=== PATIENT | male | born 1945 | race Hispanic/Latino ===

== ENCOUNTER 2016-09-17 15:25 | Emergency (ER) | payer OTHER, MEDICARE ==
[~2016-09-17] VITALS: Ht 172.7 cm; Wt 82.6 kg
[~2016-09-17 15:25] MED LIST: AMITIZA24 MC1 PO; AMPICILLIN TRI500 MG PO; ASPIR 8181 MG PO; ATIVAN0.5 M1 PO; AUGMENTIN 875-1 EACH PO; BACTRIM DS TAB1 EACH PO; BACTROBAN OINT.30 GM TOP; BENTYL10 M1 PO; CIPRO 500MG TA500 MG PO; CIPRO500 M1 PO; CIPROFLOXACIN500 M2 PO; CITRATE OF MAG300 ML PO; CRESTOR10 M1 PO; CYCLOBENZAPRINE10 M1 PO; CYMBALTA 30 MG30 MG PO; CYMBALTA30 M1 PO; DRISDOL50000 UNIT PO; DRY MOUTH45 ML PO; FERROUS SULFAT325 M1 PO; FLEET ENEMA133 ML RC; FLOMAX(MONOGRA0.4 MG PO; FLONASE ALLERG9.9 ML NASB; GABAPENTIN300 M2; GAS RELIEF 8080 M1 PO; GLUCOPHAGE500 MG PO; GOLYTELY PACKE1 EACH PO; GOLYTELY SOLU4000 ML PO; IBUPROFEN600 M1 PO; JANUMET 1000 MG1 TAB PO; LACTULOSE10 GM/153 PO; LEVSIN0.125 M1 PO; LIDODERM1 EACH TOP; MACROBID 100 M100 MG PO; METFORMIN HCL500 M3 PO; METHADONE HCL10 M1 PO; MIDODRINE HCL10 M1 PO; MIRALAX119 GM PO; MIRALAX17 G1 PO; MOVANTIK25 M1 PO; NITROFURANTOIN100 M6 PO; PERCOCET 325 MG1 TA2 PO; PERCOCET 5-3251 EACH PO; PERCOCET 7.5-31 EACH PO; PHENAZOPYRIDIN200 M3 PO; PRILOSEC OTC20 M1 PO; PROPECIA 1MG1 MG PO; PROS5 PO; PYRIDIUM100 M1 PO; PYRIDIUM200 M1 PO; REMERON30 M1 PO; REMERON30 M3 PO; SENEXON-S 50 MG1 TAB PO; SENNA S TABLET1 EACH PO; SENNA8.6 M3 PO; TRAMADOL50 MG PO; TRAZODONE HCL50 M1 PO; VANCOMYCIN 11000 MG IV; VITAMIN B11000 MCG/M PO; VITAMIN B12 1541 TAB PO; VITAMIN B121000 MC2 PO
[2016-09-17 15:32] VITALS: BP 119/73
--- NOTE | 2016-09-17 15:38 | ED GI/GU/ABDOMINAL COMPLAINT ---
History of Present Illness General Chief Complaint: General Adult Stated Complaint: "I FEEL BLOATED" Source: patient, old records Exam Limitations: no limitations Vital Signs & Intake/Output Vital Signs & Intake/Output Vital Signs Date Time Temp Pulse Resp B/P B/P Pulse O2 O2 Flow FiO2 Mean Ox Delivery Rate 09/17 1603 Room Air 09/17 1532 97.7 81 20 119/73 96 Room Air Allergies Coded Allergies: NO KNOWN ALLERGIES (11/18/15) Reconcile Medications Aspirin (Ecotrin) 81 MG TABLET.DR 1 TAB PO DAILY HEART HEALTH (Reported) Cyanocobalamin (Vitamin B12) 1,000 MCG TAB 1 TAB PO DAILY VITAMIN SUPPORT Cyclobenzaprine HCl 10 MG TABLET 1 TAB PO QPM MUSCLE RELAXER (Reported) Duloxetine Hydrochloride (Cymbalta) 30 MG CAPSULE.DR 2 CAP PO DAILY MENTAL HEALTH (Reported) Ergocalciferol (Vitamin D2) (Drisdol) 50,000 UNIT CAPSULE 1 CAP PO QMON SUPPLEMENT (Reported) Ferrous Sulfate 325 MG TAB 325 MG PO DAILY IRON, VITAMIN Finasteride (Propecia) 5 MG TAB 5 MG PO QPM PROSTATE (Reported) Fluticasone Propionate (Flonase Allergy Relief) 9.9 ML SPRAY.SUSP 1 SPRAY NASB BID ALLERGIES (Reported) Gabapentin (Unknown Strength) CAPSULE (Unknown Dose) UNKNOWN (Reported) Hyoscyamine (Levsin) 0.125 MG TABLET 1 TAB PO Q4 ABDOMINAL SPASMS Ibuprofen (Unknown Strength) TABLET (Unknown Dose) PO AD PRN PAIN (Reported) Lactulose 10 GM/15 ML SOLUTION 30 ML PO QAM PRN CONSTIPATION Lorazepam (Ativan) 0.5 MG TABLET 1 TAB PO DAILY PRN ANXIETY (Reported) Lubiprostone (Amitiza) 24 MCG CAPSULE 1 CAP PO BID GI (Reported) Metformin HCl 500 MG TABLET 1 TAB PO BID DIABETES (Reported) Naloxegol Oxalate (Movantik) 25 MG TABLET 25 MG PO DAILY CONSTIPATION ( Reported) Nitrofurantoin Monohyd/M-Cryst (Macrobid 100 MG Capsule) 100 MG CAPSULE 1 CAP PO BID uti with food Omeprazole Magnesium (Prilosec Otc) 20 MG TABLET.DR 1 TAB PO DAILY stomach upset Oxycodone HCl/Acetaminophen (Percocet 5-325 MG Tablet) 1 EACH TABLET 2 TAB PO Q4HRS PRN PAIN (Reported) Peg 3350/Na Sulf,Bicarb,Cl/KCl (Golytely Packet) 227.1-21.5 POWD.PACK 8 OZ PO T24OXAPLNM PRN CONSTIPATION Phenazopyridine HCl 200 MG TABLET 1 TAB PO Q6H PRN URINARY PAIN (Reported) Polyethylene Glycol 3350 (Miralax) 17 GM POWD.PACK 1 PAC PO DAILY GI ( Reported) dissolve in water Rosuvastatin Calcium (Crestor) 10 MG TABLET 1 TAB PO DAILY CHOLESTEROL ( Reported) Saliva Stimulant Agents Comb.4 (Dry Mouth) (Unknown Strength) SPRAY (Unknown Dose) PO Q4H PRN DRY MOUTH (Reported) Sennosides (Senna) 8.6 MG TABLET 2 TAB PO BID constipation Simethicone (Gas Relief 80) 80 MG TAB.CHEW 1 TAB PO Q4HPRN PRN gas Tamsulosin Hydrochloride (Flomax) 0.4 MG CAP.ER.24H 1 CAP PO QPM PROSTATE ( Reported) Trazodone HCl 50 MG TABLET 1 TAB PO QHS PRN INSOMNIA (Reported) Triage Note: PT TO ED C/O "I FEEL BLOATED" X 2 WEEKS. VISITING NURSE WAS AT PT'S HOUSE AND ADVISED PT TO COME TO ED. Triage Nurses Notes Reviewed? yes Onset: Gradual Duration: week(s): (2), constant Timing: recent history Quality/Severity: aching, cramping Severity Numbers: 5 Location: generalized abdomen Radiation: no radiation Activities at Onset: none Prior Abdominal Problems: similar symptoms No Modifying Factors: none Associated Symptoms: CONSTIPATION HPI: 70-year-old male with history of diabetes hypertension and high cholesterol presents to ER complaining of generalized abdominal bloating or constipation. He states his abdomen is bloated for the past 2 weeks however he states that he has not had a bowel movement in the past 4 days. He denies any black or bloody stools no nausea no vomiting. The patient has been seen here before for similar symptoms. He states is been using MiraLAX without improvement. No modifying factors no fevers or chills. (CARY POWELL) Past History Travel History Traveled to [place] past 21 day No Medical History Any Pertinent Medical History? see below for history Neurological: partial paraplegia EENT: NONE Cardiovascular: hypertension, hyperlipidemia Respiratory: NONE Gastrointestinal: GERD, ?HX BOWEL OBSTRUCTION Hepatic: NONE Renal: suprapubic catheter ENLARGED PROSTATE Musculoskeletal: ARTHRITIS SPINAL FX/SX Psychiatric: chronic pain disorder, depression Endocrine: diabetes Blood Disorders: NONE Cancer(s): NONE MOTORCYCLE POLICE/Reproductive: NONE History of MRSA: Yes History of VRE: No History of CDIFF: No Surgical History Surgical History: spinal surgery, suprapubic catheter Psychosocial History Who do you live with Patient and family Services at Home Nursing What is your primary language Swedish Tobacco Use: Never used ETOH Use: denies use Illicit Drug Use: denies illicit drug use Family History Family History, If Any: Relation not specified for: FH: diabetes mellitus Hx Contributory? No (CARY POWELL) Review of Systems Review of Systems Constitutional: Reports: see HPI. All Other Systems: Reviewed and Negative Comments Review of systems: See HPI, All other systems negative. Constitutional, no chills no fever, no malaise HEENT: No visual changes no sore throat no congestion Cardiovascular: No chest pain , no palpitation Skin: no rashes, no change in skin Respiratory: No dyspnea no cough no sputum GI: No nausea no vomiting, no diarrhea, : No dysuria Muscle skeletal: No joint pain, no back pain, no neck pain, Neurologic: No numbness no headache Psych: No stress Heme/endocrine: No bruising Immunology: No lymphadenopathy (CARY POWELL) Physical Exam Physical Exam General Appearance: well developed/nourished, no apparent distress, alert, awake Gastrointestinal: soft Comments: Well-developed well-nourished person in no acute distress HEENT: Normal EENT exam; PERRL, EOMI,HEAD is atraumatic. moist mucous membranes. Neck: Supple, normal range of motion Back: Nontender,Full range of motion Cardiovascular: Regular rate and rhythms no murmurs rubs Respiratory: Chest nontender.There were no bony deformities, no asymmetry. No respiratory distress. Patient speaking in full complete sentences. Breath sounds clear to auscultation bilaterally: NO W/R/R Abdomen: Soft, nontenderdistended, no appreciable organomegaly. Normal bowel sounds. No rebound/guarding, No appreciable enlargement of the abdominal aorta, No ascites. Extremity: No edema, full range of motion of extremities, Neuro: Alert oriented x3, motor sensory normal, There were no obvious focal neurologic abnormalities. Skin: No appreciable rash on exposed skin, skin is warm and dry. Psych: Mood and affect is normal, memory and judgment is normal. Core Measures ACS in differential dx? Yes Severe Sepsis Present: No Septic Shock Present: No (JOHNNIE RUSH,CARY) Progress Differential Diagnosis: bowel obstruction, colon cancer, diverticulitis, ischemic bowel, inflamm bowel dis, perforated viscous, pyelonephritis, SBO, CONSTIPATION, OBSTRUCTION, MALIGNANCY Plan of Care: Orders Procedure Date/time Status Enema 09/17 1628 Active COMPREHENSIVE METABOLIC PANEL 09/17 1554 Complete TROPONIN LEVEL 09/17 153 Complete LACTIC ACID 09/17 153 Complete CBC WITHOUT DIFFERENTIAL 09/17 1535 Complete Laboratory Tests 09/17/16 1554: Anion Gap 12, Estimated GFR > 60, BUN/Creatinine Ratio 16.0, Glucose 158 H, Lactic Acid 1.7, Calcium 9.5, Total Bilirubin 0.8, AST 21, ALT 40, Alkaline Phosphatase 61, Troponin I < 0.01, Total Protein 7.2, Albumin 4.2, Globulin 3.0, Albumin/Globulin Ratio 1.4, CBC w Diff NO MAN DIFF REQ, RBC 4.44 L, MCV 94.1 H , MCH 31.5 H, RDW 12.5, MPV 8.0, Gran % 78.2 H, Lymphocytes % 10.6 L, Monocytes % 8.4, Eosinophils % 2.5, Basophils % 0.3, Absolute Granulocytes 7.7 H, Absolute Lymphocytes 1.0 L, Absolute Monocytes 0.8 H, Absolute Eosinophils 0.2, Absolute Basophils 0, PUBS MCHC 33.5 09/17/16 1535: Sodium Cancelled, Potassium Cancelled, Chloride Cancelled, Carbon Dioxide Cancelled, Anion Gap Cancelled, BUN Cancelled, Creatinine Cancelled, BUN/ Creatinine Ratio Cancelled, Glucose Cancelled, Calcium Cancelled, Total Bilirubin Cancelled, AST Cancelled, ALT Cancelled, Alkaline Phosphatase Cancelled, Total Protein Cancelled, Albumin Cancelled, Globulin Cancelled, Albumin/Globulin Ratio Cancelled Labs ordered old records reviewed x-ray ordered case discussed with Dr. Underwood agrees with plan Discussed with the patient all of his lab results x-ray findings we will attempt a fleet enema as this has helped with his sx in the past pt ambulatoryto bathroom by self Patient feeling improved after fleets, I discussed with the patient at length all of their results. I had an extensive conversation regarding need for close follow up with their primary care physician this week as well as return precautions. I answered all of their questions, they feel comfortable with the plan and follow-up care. I discussed the medications that they will receive with the patient. I gave them signs and symptoms that could indicate an adverse reaction. I have advised them to limit their activities until they can see how they respond to the medication. (CARY POWELL) Diagnostic Imaging: Viewed by Me: Radiology Read. Discussed w/RAD: Radiology Read. Radiology Impression: PATIENT: JOSHUA HENDERSON PRESENT AGE : 70 PATIENT ACCOUNT NO: [id number] : 45 LOCATION: [facility] ORDERING PHYSICIAN: CARY RUSH SERVICE DATE: 09/17/16 EXAM TYPE: RAD - XRY- ABDOMEN-MULTIPLE VIEWS EXAMINATION: ABDOMEN 2 VIEWS CLINICAL INFORMATION: Bloating, constipation. COMPARISON: 04/05/2016. TECHNIQUE: Supine and upright views of the abdomen are provided. FINDINGS: There is a moderate amount of stool throughout the colon. There are no dilated loops of small bowel. There are no air-fluid levels. There is no appendicolith. The visualized lung bases are clear. The osseous structures are unremarkable. IMPRESSION: Moderate amount of stool throughout the colon. No evidence for obstruction. DICTATED BY: MAIKOL GABRIEL MD DATE/TIME DICTATED:09/17/161621 ACTUARY MANAGER:ANYI DATE/TIME TRANSCRIBED:09/17/161621 CONFIDENTIAL, DO NOT COPY WITHOUT APPROPRIATE AUTHORIZATION. <Electronically signed in Other Vendor System> SIGNED BY: MAIKOL GABRIEL MD 09/17/161626 Initial ED EKG: none (CARY POWELL) Departure Departure Time of Disposition: 1705 Disposition: HOME OR SELF CARE Condition: Stable Clinical Impression Primary Impression: Constipation Referrals: LYNN PALOMINO (PCP/Family) Additional Instructions: follow up with your pmd this week. golyltely as directed. return to the ER with any concerns Departure Forms: Customer Survey General Discharge Information Prescriptions: Current Visit Scripts Peg 3350/Na Sulf,Bicarb,Cl/KCl (Golytely Packet) 8 OZ PO [id number] PRN CONSTIPATION #4 L (CARY POWELL) PA/RAYON TESTER Co-Sign Statement Statement: ED Attending supervision documentation- [X] I saw and evaluated the patient. I have also reviewed all the pertinent lab results and diagnostic results. I agree with the findings and the plan of care as documented in the PA's/RAYON TESTER's documentation. [X] I have reviewed the ED Record and agree with the PA's/RAYON TESTER's documentation. [] Additions or exceptions (if any) to the PAs/RAYON TESTER's note and plan are summarized below: [] (HITESH YEN,LUPE)
[2016-09-17 16:13] LABS: ABSOLUTE BASOPHIL COUNT 0 /CUMM (0.0-0.2); ABSOLUTE EOSINOPHIL COUNT 0.2 /CUMM (0.0-0.7); ABSOLUTE GRANULOCYTE CT 7.7 /CUMM (1.4-6.5); ABSOLUTE MONOCYTE COUNT 0.8 /CUMM (0.10-0.60); BASOPHIL % 0.3 % (0.0-2.0); EOSINOPHIL % 2.5 % (0-5); GRANULOCYTE % 78.2 % (42.2-75.2); HEMATOCRIT 41.8 % (42-52); MEAN CORPUSCULAR HGB 31.5 PG (27.0-31.0); MEAN CORPUSCULAR HGB CONC 33.5 G/DL (33.0-37.0); MEAN CORPUSCULAR VOLUME 94.1 FL (80.0-94.0); PLATELET COUNT 226 /CUMM (130-400); RBC DISTRIBUTION WIDTH 12.5 % (11.5-14.5); RED BLOOD CELL CT 4.44 /CUMM (4.70-6.10); WHITE BLOOD CELL COUNT 9.8 /CUMM (4.8-10.8)
--- NOTE | 2016-09-17 16:27 | RADIOLOGY REPORT ---
EXAMINATION: ABDOMEN 2 VIEWS CLINICAL INFORMATION: Bloating, constipation. COMPARISON: 04/05/2016. TECHNIQUE: Supine and upright views of the abdomen are provided. FINDINGS: There is a moderate amount of stool throughout the colon. There are no dilated loops of small bowel. There are no air-fluid levels. There is no appendicolith. The visualized lung bases are clear. The osseous structures are unremarkable. IMPRESSION: Moderate amount of stool throughout the colon. No evidence for obstruction.
[2016-09-17] MEDS ORDERED: GOLYTELY PACKE1 EACH PO (17:06)
== END 2016-09-17 17:25 ==
LOC: ERH 15:25
PROVIDERS: Physician Assistant Medical
DX: K59.00 Constipation, unspecified (principal)
CPT/HCPCS: 74020

== ENCOUNTER 2016-11-04 16:01 | Emergency (ER) | payer OTHER, MEDICARE ==
[~2016-11-04] VITALS: Ht 172.7 cm; Wt 83.5 kg
[~2016-11-04 16:01] MED LIST changes: -ASPIR 8181 MG PO; +ASPIRIN EC81 M1 PO; -DRISDOL50000 UNIT PO; +FINASTERIDE5 M1 PO; +FLOMAX0.4 M1 PO; -PROS5 PO; +VITAMIN D250000 UNIT PO
--- NOTE | 2016-11-04 17:15 | ULTRASOUND REPORT ---
EXAMINATION: US TRIPLEX LOWER EXTREMITY, RIGHT CLINICAL INFORMATION: Right lower extremity edema and swelling. COMPARISON: None. TECHNIQUE: Color-flow triplex imaging with spectral analysis and compression Doppler were performed on the lower extremity. FINDINGS: Respiratory variation, normal compression and augmented flow are noted throughout the left lower extremity. The visualized common femoral vein, femoral vein, profunda femoral vein, popliteal vein and midcalf peroneal and posterior tibial venous segments show no evidence of deep venous thrombosis. There is no Weiss's cyst. IMPRESSION: Normal triplex scan without evidence of deep venous thrombosis involving the right lower extremity.
--- NOTE | 2016-11-04 18:34 | ED GENERAL ADULT ---
History of Present Illness General Chief Complaint: General Adult Stated Complaint: SENT BY MD TO R/O DVT,ABD DISTENTION Source: patient, family Exam Limitations: no limitations Allergies Coded Allergies: NO KNOWN ALLERGIES (11/18/15) Reconcile Medications Aspirin (Ecotrin*) 81 MG TABLET.DR 1 TAB PO DAILY HEART/BLOOD (Reported) Duloxetine Hydrochloride (Cymbalta) 30 MG CAPSULE.DR 2 CAP PO DAILY MENTAL HEALTH (Reported) Ergocalciferol (Vitamin D2) (Vitamin D2) 50,000 UNIT CAPSULE 1 CAP PO QMON SUPPLEMENT (Reported) Finasteride 5 MG TABLET 1 TAB PO QPM PROSTATE (Reported) Hyoscyamine (Levsin) 0.125 MG TABLET 1 TAB PO Q4 ABDOMINAL SPASMS Ibuprofen 800 MG TABLET 1 TAB PO PRN PAIN (Reported) Lactulose 10 GM/15 ML SOLUTION 30 ML PO QAM PRN CONSTIPATION Metformin HCl 500 MG TABLET 1 TAB PO BID DIABETES (Reported) Rosuvastatin Calcium (Crestor) 10 MG TABLET 1 TAB PO DAILY CHOLESTEROL ( Reported) Simethicone (Gas Relief 80) 80 MG TAB.CHEW 1 TAB PO Q4HPRN PRN gas Tamsulosin HCl (Flomax) 0.4 MG CAP.ER.24H 1 CAP PO QPM PROSTATE (Reported) Triage Note: 71 YO MALE TO ER FOR R/O DVT TO RLE AND FOR ABD BLOATING, C/O PAIBN TO LOWER ABD. STATES LAST BOWEL MOVMENT WAS THURSDAY. DENIES NAUSEA/VOMTINIG, C/O "ALOT OF GAS" Triage Nurses Notes Reviewed? yes Onset: Abrupt Duration: day(s):, constant, continues in ED Timing: recent history Injury Environment: home Severity: moderate, severe No Modifying Factors: none HPI: 71-year-old male comes into emergency room for further evaluation of right leg swelling, and lower abdominal pain, and leg shaking. Patient reports that he's been unsteady on his feet. He has some lower abdominal pain with some associated diarrhea for the past week. Denies any chest pain or shortness of breath. Pain wraps around to his lower back. Nothing seems to make the symptoms better or worse. (HEATHER RUSH,ASHLEY) Vital Signs & Intake/Output Vital Signs & Intake/Output Vital Signs Date Time Temp Pulse Resp B/P B/P Pulse O2 O2 Flow FiO2 Mean Ox Delivery Rate 11/04 2112 72 20 112/67 97 11/04 1829 75 107/56 97 Room Air 11/04 1606 98.6 88 18 114/75 98 Room Air Past History Travel History Traveled to [place] past 21 day No Medical History Any Pertinent Medical History? see below for history Neurological: partial paraplegia EENT: NONE Cardiovascular: hypertension, hyperlipidemia Respiratory: NONE Gastrointestinal: GERD, ?HX BOWEL OBSTRUCTION Hepatic: NONE Renal: suprapubic catheter ENLARGED PROSTATE Musculoskeletal: ARTHRITIS SPINAL FX/SX Psychiatric: chronic pain disorder, depression Endocrine: diabetes Blood Disorders: NONE Cancer(s): NONE PHYSICAL INSTRUCTOR/Reproductive: NONE History of MRSA: Yes History of VRE: No History of CDIFF: No Surgical History Surgical History: spinal surgery, suprapubic catheter Psychosocial History Who do you live with Patient and family 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 No (ASHLEY THAO) Review of Systems Review of Systems Constitutional: Reports: no symptoms. EENTM: Reports: no symptoms. Respiratory: Reports: no symptoms. Cardiovascular: Reports: no symptoms. GI: Reports: see HPI. Genitourinary: Reports: see HPI. Musculoskeletal: Reports: see HPI. Skin: Reports: no symptoms. Neurological/Psychological: Reports: no symptoms. Hematologic/Endocrine: Reports: no symptoms. Immunologic/Allergic: Reports: no symptoms. All Other Systems: Reviewed and Negative (ASHLEY THAO) Physical Exam Physical Exam General Appearance: alert, awake Head: atraumatic Eyes: Bilateral: normal appearance. Ears, Nose, Throat: normal ENT inspection, hearing grossly normal Neck: normal inspection Respiratory: normal breath sounds, no respiratory distress Cardiovascular: regular rate/rhythm Gastrointestinal: soft, tenderness Back: normal range of motion Extremities: edema, no erythema, no open sores Neurologic/Psych: awake, alert, oriented x 3, normal mood/affect Skin: intact, normal color Core Measures ACS in differential dx? No CVA/TIA Diagnosis: No Severe Sepsis Present: No Septic Shock Present: No (ASHLEY THAO) Progress Differential Diagnoses I considered the following diagnoses in my evaluation of the patient: DVT, diverticulitis, constipation, low back strain, cauda equina, UTI, Plan of Care: Orders Procedure Date/time Status CULTURE,URINE 11/04 1832 Active URINALYSIS 11/04 1832 Complete TROPONIN LEVEL 11/04 1832 Complete LACTIC ACID 11/04 1832 Complete COMPREHENSIVE METABOLIC PANEL 11/04 1832 Complete CBC WITHOUT DIFFERENTIAL 11/04 1832 Complete EKG 11/04 1832 Active Laboratory Tests 11/04/161912: Anion Gap 12, Estimated GFR > 60, BUN/Creatinine Ratio 15.5, Glucose 121 H, Lactic Acid 1.8, Calcium 10.2, Total Bilirubin 0.5, AST 19, ALT 26, Alkaline Phosphatase 61, Troponin I < 0.01, Total Protein 7.3, Albumin 4.3, Globulin 3.0, Albumin/Globulin Ratio 1.4, CBC w Diff NO MAN DIFF REQ, RBC 4.40 L, MCV 94.0, MCH 31.5 H, RDW 12.5, MPV 7.7, Gran % 70.3, Lymphocytes % 16.6 L, Monocytes % 9.8 H, Eosinophils % 2.9, Basophils % 0.4, Absolute Granulocytes 5.0, Absolute Lymphocytes 1.2, Absolute Monocytes 0.7 H, Absolute Eosinophils 0.2, Absolute Basophils 0, PUBS MCHC 33.5, Urinalysis LIGHT H, Urine Color YEL, Urine Clarity HAZY H, Urine pH 6.5, Ur Specific [place] <= 1.005, Urine Protein NEG, Urine Ketones NEG, Urine Nitrite POS H, Urine Bilirubin NEG, Urine Urobilinogen 0.2, Ur Leukocyte Esterase LARGE H, Ur Microscopic SEDIMENT EXAMINED, Urine WBC 25- 50 H, Ur Epithelial Cells FEW, Urine Bacteria MOD H, Urine Hemoglobin TRACE- LYSED H, Urine Glucose NEG Microbiology 11/04 1912 URINE ROUT: Urine Culture - RECD Diagnostic Imaging: Viewed by Me: CT Scan. Discussed w/RAD: CT Scan. Radiology Impression: XAM TYPE: CAT - CT ABD & PELVIS W/O IV CONTRAS EXAMINATION : CT ABDOMEN AND PELVIS WITHOUT CONTRAST CLINICAL INFORMATION: Lower back and abdominal pain. COMPARISON: 02/15/2016 TECHNIQUE: Multidetector volumetric imaging was performed from the superior aspect of the liver through the pubic symphysis. Sagittal and coronal reformatted images were obtained on the technologist's workstation. DLP: 403 mGy-cm FINDINGS: LUNG BASES: Unremarkable. LIVER AND SPLEEN: Unremarkable. PANCREAS GALLBLADDER AND BILIARY TREE: Pancreas appears somewhat atrophic. There is a subcentimeter hyperdensity identified dependently in the gallbladder suggesting at least one small calculus, otherwise the gallbladder is somewhat contracted limiting evaluation. Biliary tree is nondilated. KIDNEYS, URETERS, AND ADRENALS: Unremarkable on this noncontrast examination. There is no evidence of hydronephrosis or urolithiasis. The adrenal glands appear unremarkable. URINARY BLADDER: There is a suprapubic catheter in place, urinary bladder is collapsed limiting evaluation. Prostate is moderately- to-markedly enlarged. GI TRACT: There is a redundant air-filled sigmoid colon extending superiorly to above the level of the transverse colon and then extending inferiorly back into the pelvis. The remaining colon is moderately stool-filled. Stomach and small bowel loops appear unremarkable. PERITONEAL CAVITY: There is no intraperitoneal free air or free fluid identified. RETROPERITONEUM: Mild atherosclerotic aortic calcification without aneurysmal dilatation. PELVIC ORGANS: Prostate is moderately enlarged, urinary bladder contains a suprapubic tube and is collapsed. OSSEOUS STRUCTURES: No focal destructive or sclerotic osseous lesions are identified to suggest an aggressive process. There are moderate facet degenerative changes involving the lower lumbar spine and lumbosacral junction with hypertrophic productive change resulting in bilateral foraminal narrowing at the L5-S1 greater than L4-L5 levels. There is joint space narrowing in the hips with mild productive changes on the right. ANTERIOR ABDOMINAL WALL AND SOFT TISSUES: There is a small indirect left inguinal hernia containing only mesenteric fat. IMPRESSION: 1. Cholelithiasis without evidence of acute cholecystitis. 2. Sigmoid colon is redundant with moderate gaseous distention largely unchanged compared with plain films dated 09/17/2016. There is no evidence of an obstruction. 3. Prostate is enlarged. There is a suprapubic tube again identified in place. 4. Moderate spondylosis most notably L4-L5 and L5-S1 levels. 5. Left inguinal hernia containing only mesenteric fat. DICTATED BY: RIKKI MOORE MD DATE/TIME DICTATED:11/04/161845 FILM TOUCH UP INSPECTOR:ANYI DATE/TIME TRANSCRIBED:1845 CONFIDENTIAL, DO NOT COPY WITHOUT APPROPRIATE AUTHORIZATION. < Electronically signed in Other Vendor System> Initial ED EKG: normal intervals, normal p-waves, normal QRS complex, normal sinus rhythm, rate (68) (ASHLEY THAO) Departure Departure Disposition: HOME OR SELF CARE Condition: Stable Clinical Impression Primary Impression: Abdominal pain Referrals: LYNN PALOMINO (PCP/Family) Additional Instructions: Follow-up with your primary care doctor. Follow-up for outpatient stool sample with primary care doctor. Bring stool samples here primary care doctor. Return if any concerns worsening symptoms. Please go over all results of today's visit with your primary care doctor. Contact your primary care doctor to let them know you were here in the emergency room. There may be nonspecific findings which may not be related to your visit today here in the emergency room but may require further evaluation and chronic monitoring by your primary care doctor. If you had a laceration today the chance of foreign body always remains. You should follow-up with your primary care doctor for recheck in 3-5 days for a wound check. If you had an x-ray done there is a chance that a fracture could have been missed on initial read and you should follow-up with your primary care doctor for repeat x-rays if symptoms persist. If your blood pressure was elevated here in the emergency room please have rechecked by her primary care doctor within the next 48 hours by your primary care doctor. If you were prescribed a narcotic here in the emergency room or any type of controlled substances you're not allowed to drive while taking this medication or operate any type of heavy machinery. Narcotics can make you feel lightheaded dizziness nausea and can cause constipation. You may need to continuous pickling line pickler a stool softener. Thank you for choosing [facility] emergency room. Please return to the emergency room immediately if you have any other concerns worsening of symptoms. Departure Forms: Customer Survey General Discharge Information Comments 11/04/2016 9:23:59 PM Patient clinically looks well. Patient is in no apparent distress. Patient is nontoxic-appearing. Patient is resting comfortably in room. He is able to ambulate here with a walker at his normal baseline. Patient was seen and evaluated by Dr. Burns. No evidence of DVT. No evidence of lower extremity infection. Patient is at his normal baseline of function. Follow-up with primary care. Return for other concerns. Reviewing previous urines patient is positive nitrate and always has pyuria. I do not feel the patient has a urinary tract infection but is chronically colonized. Urine culture sent. Afebrile. No white count. (ASHLEY THAO) PA/GROUP INSURANCE SPECIAL AGENT Co-Sign Statement Statement: ED Attending supervision documentation- [X I saw and evaluated the patient. I have also reviewed all the pertinent lab results and diagnostic results. I agree with the findings and the plan of care as documented in the PA's/GROUP INSURANCE SPECIAL AGENT's documentation. [] I have reviewed the ED Record and agree with the PA's/GROUP INSURANCE SPECIAL AGENT's documentation. [] Additions or exceptions (if any) to the PAs/GROUP INSURANCE SPECIAL AGENT's note and plan are summarized below: [] (FREDERICK YEN,WENDIE Waters) Critical Care Note Critical Care Note Critical Care Time: non-applicable (ASHLEY THAO)
[2016-11-04] MEDS ORDERED: IBUPROFEN800 M1 PO (18:43)
--- NOTE | 2016-11-04 19:11 | CT SCAN REPORT ---
EXAMINATION: CT ABDOMEN AND PELVIS WITHOUT CONTRAST CLINICAL INFORMATION: Lower back and abdominal pain. COMPARISON: 02/15/2016 TECHNIQUE: Multidetector volumetric imaging was performed from the superior aspect of the liver through the pubic symphysis. Sagittal and coronal reformatted images were obtained on the technologist's workstation. DLP: 403 mGy-cm FINDINGS: LUNG BASES: Unremarkable. LIVER AND SPLEEN: Unremarkable. PANCREAS GALLBLADDER AND BILIARY TREE: Pancreas appears somewhat atrophic. There is a subcentimeter hyperdensity identified dependently in the gallbladder suggesting at least one small calculus, otherwise the gallbladder is somewhat contracted limiting evaluation. Biliary tree is nondilated. KIDNEYS, URETERS, AND ADRENALS: Unremarkable on this noncontrast examination. There is no evidence of hydronephrosis or urolithiasis. The adrenal glands appear unremarkable. URINARY BLADDER: There is a suprapubic catheter in place, urinary bladder is collapsed limiting evaluation. Prostate is [id number] enlarged. GI TRACT: There is a redundant air-filled sigmoid colon extending superiorly to above the level of the transverse colon and then extending inferiorly back into the pelvis. The remaining colon is moderately stool-filled. Stomach and small bowel loops appear unremarkable. PERITONEAL CAVITY: There is no intraperitoneal free air or free fluid identified. RETROPERITONEUM: Mild atherosclerotic aortic calcification without aneurysmal dilatation. PELVIC ORGANS: Prostate is moderately enlarged, urinary bladder contains a suprapubic tube and is collapsed. OSSEOUS STRUCTURES: No focal destructive or sclerotic osseous lesions are identified to suggest an aggressive process. There are moderate facet degenerative changes involving the lower lumbar spine and lumbosacral junction with hypertrophic productive change resulting in bilateral foraminal narrowing at the L5-S1 greater than L4-L5 levels. There is joint space narrowing in the hips with mild productive changes on the right. ANTERIOR ABDOMINAL WALL AND SOFT TISSUES: There is a small indirect left inguinal hernia containing only mesenteric fat. IMPRESSION: 1. Cholelithiasis without evidence of acute cholecystitis. 2. Sigmoid colon is redundant with moderate gaseous distention largely unchanged compared with plain films dated 09/17/2016. There is no evidence of an obstruction. 3. Prostate is enlarged. There is a suprapubic tube again identified in place. 4. Moderate spondylosis most notably L4-L5 and L5-S1 levels. 5. Left inguinal hernia containing only mesenteric fat.
[2016-11-04 19:31] LABS: ABSOLUTE BASOPHIL COUNT 0 /CUMM (0.0-0.2); ABSOLUTE EOSINOPHIL COUNT 0.2 /CUMM (0.0-0.7); ABSOLUTE LYMPH COUNT 1.2 /CUMM (1.2-3.4); ABSOLUTE MONOCYTE COUNT 0.7 /CUMM (0.10-0.60); BASOPHIL % 0.4 % (0.0-2.0); EOSINOPHIL % 2.9 % (0-5); GRANULOCYTE % 70.3 % (42.2-75.2); HEMATOCRIT 41.3 % (42-52); MEAN CORPUSCULAR HGB 31.5 PG (27.0-31.0); MEAN CORPUSCULAR HGB CONC 33.5 G/DL (33.0-37.0); MEAN PLATELET VOLUME 7.7 FL (7.4-10.4); PLATELET COUNT 245 /CUMM (130-400); RBC DISTRIBUTION WIDTH 12.5 % (11.5-14.5); WHITE BLOOD CELL COUNT 7.1 /CUMM (4.8-10.8)
[2016-11-04 21:12] VITALS: BP 112/67
== END 2016-11-04 21:14 ==
LOC: ERH 16:01
PROVIDERS: Physician Assistant Medical
DX: R10.31 Right lower quadrant pain (principal)
CPT/HCPCS: 87184; 74176; 81001; 87086; 87147; 93005; 93010

== ENCOUNTER 2017-06-09 14:30 | Emergency (ER) | payer OTHER, MEDICARE ==
[~2017-06-09] VITALS: Ht 172.7 cm; Wt 65.8 kg
[~2017-06-09 14:30] MED LIST changes: +COLACE100 M1 PO; +IBUPROFEN800 M1 PO
--- NOTE | 2017-06-09 17:20 | ED GI/GU/ABDOMINAL COMPLAINT ---
History of Present Illness General Chief Complaint: Abdominal Pain/Flank Pain Stated Complaint: L SIDE ABD PAIN Source: patient, old records Exam Limitations: no limitations Vital Signs & Intake/Output Vital Signs & Intake/Output Vital Signs Date Time Temp Pulse Resp B/P B/P Pulse O2 O2 Flow FiO2 Mean Ox Delivery Rate 06/09 1731 100 06/09 1722 98.2 67 2 140/65 100 Room Air 06/09 1446 97.0 73 20 138/73 98 Room Air Allergies Coded Allergies: NO KNOWN ALLERGIES (11/18/15) Reconcile Medications Aspirin (Ecotrin*) 81 MG TABLET.DR 1 TAB PO DAILY HEART/BLOOD (Reported) Dicyclomine Hydrochloride (Bentyl) 10 MG CAPSULE 1 CAP PO TID PRN ABDOMINAL PAIN Docusate Sodium (Colace) 100 MG CAPSULE 1 CAP PO ONCE PRN CONSTIPATION Duloxetine Hydrochloride (Cymbalta) 30 MG CAPSULE.DR 2 CAP PO DAILY MENTAL HEALTH (Reported) Ergocalciferol (Vitamin D2) (Vitamin D2) 50,000 UNIT CAPSULE 1 CAP PO QMON SUPPLEMENT (Reported) Finasteride 5 MG TABLET 1 TAB PO QPM PROSTATE (Reported) Hyoscyamine (Levsin) 0.125 MG TABLET 1 TAB PO Q4 ABDOMINAL SPASMS Ibuprofen 800 MG TABLET 1 TAB PO PRN PAIN (Reported) Lactulose 10 GM/15 ML SOLUTION 30 ML PO QAM PRN CONSTIPATION Metformin HCl 500 MG TABLET 1 TAB PO BID DIABETES (Reported) Rosuvastatin Calcium (Crestor) 10 MG TABLET 1 TAB PO DAILY CHOLESTEROL ( Reported) Sennosides (Senna) 8.6 MG TABLET 2 TAB PO ONCE PRN CONSTIPATION Simethicone (Gas Relief 80) 80 MG TAB.CHEW 1 TAB PO Q4HPRN PRN gas Tamsulosin HCl (Flomax) 0.4 MG CAP.ER.24H 1 CAP PO QPM PROSTATE (Reported) Triage Note: PT TO ED C/O LLQ PAIN. PT STATES HE WAS "BACKED UP" SO HE DRANK "A LIQUID" LAST NIGHT. HAD DIARRHEA AND NOW C/O LLQ PAIN. Triage Nurses Notes Reviewed? yes Onset: Gradual Duration: getting worse Timing: recent history Quality/Severity: sharpness, severe, stabbing Severity Numbers: 6 Location: left lower quadrant, left upper quadrant Radiation: no radiation HPI: Patient is a 71-year-old male with a past medical history of chronic abdominal pain and constipation with several emergency room visits for symptoms, hypertension, diabetes, hyperlipidemia BPH with outflow obstruction in urinary retention status post suprapubic catheter, neurogenic bladder, erosive hypospadias, kidney stones and depression who presents emergency room with concerns of a 3-4 day history of nonproductive cough however yesterday after eating rice and beans approximately one hour after patient began having a gradual onset of left lower quadrant abdominal pain with mild nausea patient does state that he felt constipated yesterday with distention however today he did have diarrhea loose watery stool production 1 with no blood no melena noted , patient has been able tolerate liquids today with no vomiting, left lower quadrant abdominal pain has progressively worsened. Patient denies any fever chills chest pain arm pain jaw pain diaphoresis hemoptysis shortness of breath dysuria Past History Travel History Traveled to [place] past 21 day No Medical History Any Pertinent Medical History? 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 MOTHER, , Age 85; Cause: Diabetes. Relation not specified for: FH: diabetes mellitus Hx Contributory? No Review of Systems Review of Systems Constitutional: Reports: see HPI. Denies: chills, fever. EENTM: Reports: no symptoms. Respiratory: Reports: see HPI, cough. Cardiovascular: Reports: no symptoms. GI: Reports: see HPI, abdominal pain, nausea. Genitourinary: Reports: no symptoms. Musculoskeletal: Reports: no symptoms. Skin: Reports: no symptoms. Neurological/Psychological: Reports: no symptoms. Hematologic/Endocrine: Reports: no symptoms. Immunologic/Allergic: Reports: no symptoms. All Other Systems: Reviewed and Negative Physical Exam Physical Exam General Appearance: no apparent distress, alert, comfortable Head: atraumatic Eyes: Bilateral: normal appearance. Ears, Nose, Throat, Mouth: hearing grossly normal Neck: normal inspection, supple Respiratory: chest non-tender, no respiratory distress, rhonchi Cardiovascular: regular rate/rhythm Peripheral Pulses: 2+ radial (R) Gastrointestinal: distention, tenderness (LLQ) Extremities: normal range of motion Neurologic/Psych: no motor/sensory deficits, awake, alert Skin: intact, normal color, warm/dry Core Measures ACS in differential dx? No Sepsis Present: No Sepsis Focused Exam Completed? No Progress Differential Diagnosis: AAA, AMI, appendicitis, biliary colic, bowel obstruction , colon cancer, cholecystitis, diverticulitis, epididymitis, esophageal varices, gastritis, hepatitis, hernia, hemorrhoids, ischemic bowel, inflamm bowel dis, orchitis, pancreatitis, prostatitis, peptic ulcer, PUD/GERD, perforated viscous, pyelonephritis, SBO, STD, testicular torsion, ureterolithiasis, urinary retention, urethritis, UTI/pyelo Plan of Care: Orders Procedure Date/time Status LACTIC ACID 06/09 202 Active RAPID VIRAL INFLUENZA A 06/09 1730 Complete EKG 06/09 1730 Active LACTIC ACID 06/09 1722 Complete URINALYSIS 06/09 1448 Complete TROPONIN LEVEL 06/09 1448 Complete LIPASE 06/09 1448 Complete COMPREHENSIVE METABOLIC PANEL 06/09 1448 Complete CBC WITHOUT DIFFERENTIAL 06/09 1448 Complete Laboratory Tests 06/09/17 1915: Urine Color YEL, Urine Clarity CLEAR, Urine pH 7.0, Ur Specific [place] <= 1.005 , Urine Protein NEG, Urine Ketones NEG, Urine Nitrite POS H, Urine Bilirubin NEG, Urine Urobilinogen 0.2, Ur Leukocyte Esterase MOD H, Ur Microscopic SEDIMENT EXAMINED, Urine RBC 1-3, Urine WBC 3-5 H, Urine Bacteria MOD H, Urine Hemoglobin SMALL H, Urine Glucose NEG 06/09/17 1758: Lactic Acid 0.9 06/09/17 1750: Anion Gap 13, Estimated GFR > 60, BUN/Creatinine Ratio 11.1, Glucose 149 H, Calcium 9.6, Total Bilirubin 0.7, AST 23, ALT 24, Alkaline Phosphatase 60, Troponin I < 0.01, Total Protein 7.1, Albumin 4.1, Globulin 3.0, Albumin/ Globulin Ratio 1.4, Lipase 144, CBC w Diff NO MAN DIFF REQ, RBC 4.28 L, MCV 94.4 H, MCH 31.9 H, MCHC 33.8, RDW 12.9, MPV 8.9, Gran % 76.7 H, Lymphocytes % 12.8 L, Monocytes % 7.8, Eosinophils % 2.3, Basophils % 0.4, Absolute Granulocytes 6.1, Absolute Lymphocytes 1.0 L, Absolute Monocytes 0.6, Absolute Eosinophils 0.2, Absolute Basophils 0 Microbiology 06/09 1751 NASOPHARYN: Influenza Virus A & B Rapid Smear - COMP Patient on initial examination was resting comfortable at bedside blood work and CT scan was unremarkable EKG was unremarkable negative flu patient was able tolerate by mouth upon discharge. Patient was strongly advised to follow-up with his established drill doctor as he states that he cannot remember her name, upon discharge patient looks well no apparent distress and will comply and had no questions Diagnostic Imaging: Viewed by Me: CT Scan. Radiology Impression: no acute abnormality Initial ED EKG: normal p-waves, normal QRS complex, normal sinus rhythm, 61 BPM, NSR Comments: PATIENT: JOSHUA HENDERSON PRESENT AGE: 71 PATIENT ACCOUNT NO: [id number] : 45 LOCATION: [facility] ORDERING PHYSICIAN: Chuy RUSH SERVICE DATE: 06/09/17 EXAM TYPE: CAT - CT ABD & PELVIS W IV CONTRAST EXAMINATION: CT ABDOMEN AND PELVIS WITH CONTRAST CLINICAL INFORMATION: Left lower quadrant pain. COMPARISON: Multiple prior examinations most recent CT abdomen January 2017. TECHNIQUE: Multidetector volumetric imaging was performed of the abdomen and pelvis following IV administration of 95 mL of Optiray 320 intravenous contrast. Sagittal and coronal reformatted images were obtained on the technologist's workstation. DLP: 1024 mGy-cm FINDINGS: LIVER, GALLBLADDER, AND BILIARY TREE: The liver is normal in size, shape, and attenuation. No focal hepatic lesion or biliary ductal dilatation is present. The gallbladder is unremarkable with no evidence of radiopaque gallstones, gallbladder wall thickening, or obvious pericholecystic inflammatory changes. PANCREAS: Unremarkable. SPLEEN: Unremarkable. ADRENAL GLANDS: Unremarkable. KIDNEYS AND URETERS: The kidneys are normal in size, shape, and attenuation. No hydronephrosis, hydroureter, or calculi seen. No perinephric stranding. BLADDER: Decompressed with suprapubic catheter in place. GASTROINTESTINAL TRACT: The small and large bowel are unremarkable. The appendix is unremarkable. Stomach normal. ABDOMINAL WALL: Left fat-containing inguinal hernia, unchanged. LYMPH NODES: Normal. VASCULAR: [id number] arterial calcification throughout. PELVIC VISCERA: Unremarkable. OSSEOUS STRUCTURES: Multilevel spondylosis of the lumbosacral spine, unchanged. Degenerative changes of the sacroiliac joints. Mild degenerative changes of the hips, unchanged. IMPRESSION: 1. No acute or definite significant abnormality. 2. Suprapubic catheter in place. 3. Left fat-containing inguinal hernia, unchanged. 4. [id number] calcific atherosclerotic disease. 5. Multilevel spondylosis of the lumbosacral spine. DICTATED BY: Angelo Bee MD DATE/TIME DICTATED:06/09/171899 REAL ESTATE DEVELOPER:ANYI PATIENT: JOSHUA HENDERSON PRESENT AGE: 71 PATIENT ACCOUNT NO: [id number] : 45 LOCATION: [facility] ORDERING PHYSICIAN: Chuy RUSH SERVICE DATE: 06/09/17 EXAM TYPE: CAT - CT CHEST W IV CONTRAST EXAMINATION: CT CHEST WITH CONTRAST CLINICAL INFORMATION: Cough, rhonchi. COMPARISON: Prior chest x-ray July 2013. TECHNIQUE: Multidetector volumetric CT imaging of the chest was obtained after the administration of 50 mL of Optiray 320 intravenous contrast without immediate adverse reactions. Axial MIP volume rendering provided. Sagittal and coronal reformatted images were obtained. DLP: 1024.53 mGy-cm FINDINGS: LUNGS: Minimal atelectasis or scar in the lingula and right lower lobe. Lungs otherwise clear. MEDIASTINUM: Mild arterial calcification of the thoracic aorta. No significant lymphadenopathy. Heart size normal. No pericardial effusion. PLEURA: There is no pleural effusion. No pleural mass or thickening. AXILLA: No lymphadenopathy. OSSEOUS STRUCTURES: Multilevel spondylosis of the dorsal spine. IMPRESSION: 1. No acute abnormality. 2. Minimal atelectasis or scarring in the lingula and right lower lobe. 3. Mild calcific atherosclerotic disease. DICTATED BY: Angelo Bee MD DATE/TIME DICTATED:06/09/171912 REAL ESTATE DEVELOPER:ANYI Departure Departure Disposition: HOME OR SELF CARE Condition: Stable Clinical Impression Primary Impression: Abdominal pain Referrals: Alisson Aquino APRN (PCP/Family) Additional Instructions: As discussed begin a 48 hour clear liquid and bland diet to rest her bowels, begin [id number] ibuprofen or Tylenol for your pain, begin the prescription Bentyl for your symptoms, PRESCRIPTIONS ARE waiting at [facility], follow-up this week with your drill doctor for further evaluation treatment if symptoms worsen return to emergency room Departure Forms: Customer Survey General Discharge Information Prescriptions: Current Visit Scripts Dicyclomine Hydrochloride (Bentyl) 1 CAP PO TID PRN ABDOMINAL PAIN #6 CAP
[2017-06-09 18:46] LABS: ABSOLUTE BASOPHIL COUNT 0 /CUMM (0.0-0.2); ABSOLUTE EOSINOPHIL COUNT 0.2 /CUMM (0.0-0.7); ABSOLUTE GRANULOCYTE CT 6.1 /CUMM (1.4-6.5); ABSOLUTE MONOCYTE COUNT 0.6 /CUMM (0.10-0.60); BASOPHIL % 0.4 % (0.0-2.0); EOSINOPHIL % 2.3 % (0-5); GRANULOCYTE % 76.7 % (42.2-75.2); HEMATOCRIT 40.4 % (42-52); MEAN CORPUSCULAR HGB 31.9 PG (27.0-31.0); MEAN CORPUSCULAR HGB CONC 33.8 G/DL (33.0-37.0); MEAN CORPUSCULAR VOLUME 94.4 FL (80.0-94.0); MEAN PLATELET VOLUME 8.9 FL (7.4-10.4); PLATELET COUNT 243 /CUMM (130-400); RBC DISTRIBUTION WIDTH 12.9 % (11.5-14.5); RED BLOOD CELL CT 4.28 /CUMM (4.70-6.10); WHITE BLOOD CELL COUNT 7.9 /CUMM (4.8-10.8)
--- NOTE | 2017-06-09 19:28 | CT SCAN REPORT ---
EXAMINATION: CT ABDOMEN AND PELVIS WITH CONTRAST CLINICAL INFORMATION: Left lower quadrant pain. COMPARISON: Multiple prior examinations most recent CT abdomen January 2017. TECHNIQUE: Multidetector volumetric imaging was performed of the abdomen and pelvis following IV administration of 95 mL of Optiray 320 intravenous contrast. Sagittal and coronal reformatted images were obtained on the technologist's workstation. DLP: 1024 mGy-cm FINDINGS: LIVER, GALLBLADDER, AND BILIARY TREE: The liver is normal in size, shape, and attenuation. No focal hepatic lesion or biliary ductal dilatation is present. The gallbladder is unremarkable with no evidence of radiopaque gallstones, gallbladder wall thickening, or obvious pericholecystic inflammatory changes. PANCREAS: Unremarkable. SPLEEN: Unremarkable. ADRENAL GLANDS: Unremarkable. KIDNEYS AND URETERS: The kidneys are normal in size, shape, and attenuation. No hydronephrosis, hydroureter, or calculi seen. No perinephric stranding. BLADDER: Decompressed with suprapubic catheter in place. GASTROINTESTINAL TRACT: The small and large bowel are unremarkable. The appendix is unremarkable. Stomach normal. ABDOMINAL WALL: Left fat-containing inguinal hernia, unchanged. LYMPH NODES: Normal. VASCULAR: Hkxk-fm-latrwcmk arterial calcification throughout. PELVIC VISCERA: Unremarkable. OSSEOUS STRUCTURES: Multilevel spondylosis of the lumbosacral spine, unchanged. Degenerative changes of the sacroiliac joints. Mild degenerative changes of the hips, unchanged. IMPRESSION: 1. No acute or definite significant abnormality. 2. Suprapubic catheter in place. 3. Left fat-containing inguinal hernia, unchanged. 4. Uxmr-cz-[id number] calcific atherosclerotic disease. 5. Multilevel spondylosis of the lumbosacral spine.
--- NOTE | 2017-06-09 19:29 | CT SCAN REPORT ---
EXAMINATION: CT CHEST WITH CONTRAST CLINICAL INFORMATION: Cough, rhonchi. COMPARISON: Prior chest x-ray July 2013. TECHNIQUE: Multidetector volumetric CT imaging of the chest was obtained after the administration of 50 mL of Optiray 320 intravenous contrast without immediate adverse reactions. Axial MIP volume rendering provided. Sagittal and coronal reformatted images were obtained. DLP: 1024.53 mGy-cm FINDINGS: LUNGS: Minimal atelectasis or scar in the lingula and right lower lobe. Lungs otherwise clear. MEDIASTINUM: Mild arterial calcification of the thoracic aorta. No significant lymphadenopathy. Heart size normal. No pericardial effusion. PLEURA: There is no pleural effusion. No pleural mass or thickening. AXILLA: No lymphadenopathy. OSSEOUS STRUCTURES: Multilevel spondylosis of the dorsal spine. IMPRESSION: 1. No acute abnormality. 2. Minimal atelectasis or scarring in the lingula and right lower lobe. 3. Mild calcific atherosclerotic disease.
[2017-06-09] MEDS ORDERED: BENTYL10 M1 PO (20:16)
[2017-06-09 20:39] VITALS: BP 128/68
== END 2017-06-09 20:49 ==
LOC: ERH 14:30
PROVIDERS: Physician Assistant Medical
DX: R10.32 Left lower quadrant pain (principal)
CPT/HCPCS: 74177; 81001; 87086; 87804; 87804-59; 93005; 93010; 96361; 96374; J0131

== ENCOUNTER 2017-09-01 14:17 | Emergency (ER) | payer OTHER, MEDICARE ==
[~2017-09-01] VITALS: Ht 172.7 cm; Wt 66.2 kg
--- NOTE | 2017-09-01 14:49 | ED GI/GU/ABDOMINAL COMPLAINT ---
History of Present Illness General Chief Complaint: General Adult Stated Complaint: CONSTIPATION Source: patient, old records Exam Limitations: no limitations Vital Signs & Intake/Output Vital Signs & Intake/Output Vital Signs Date Time Temp Pulse Resp B/P B/P Pulse O2 O2 Flow FiO2 Mean Ox Delivery Rate 09/01 1852 84 20 122/62 97 Room Air 09/01 1634 87 18 121/60 99 Room Air 09/01 1421 96.0 98 20 146/66 99 Room Air Allergies Coded Allergies: NO KNOWN ALLERGIES (11/18/15) Reconcile Medications Aspirin (Ecotrin*) 81 MG TABLET.DR 1 TAB PO DAILY HEART/BLOOD (Reported) Dicyclomine HCl 10 MG CAPSULE 1 CAP PO TID PRN GI (Reported) Docusate Sodium (Colace) 100 MG CAPSULE 1 CAP PO ONCE PRN CONSTIPATION Duloxetine Hydrochloride (Cymbalta) 30 MG CAPSULE.DR 2 CAP PO DAILY MENTAL HEALTH (Reported) Ergocalciferol (Vitamin D2) (Vitamin D2) 50,000 UNIT CAPSULE 1 CAP PO QMON SUPPLEMENT (Reported) Finasteride 5 MG TABLET 1 TAB PO QPM PROSTATE (Reported) Hyoscyamine (Levsin) 0.125 MG TABLET 1 TAB PO Q4 ABDOMINAL SPASMS Ibuprofen 800 MG TABLET 1 TAB PO PRN PAIN (Reported) Lactulose 10 GM/15 ML SOLUTION 30 ML PO QAM PRN CONSTIPATION Magnesium Citrate 296 ML SOLUTION 296 ML PO ONCE CONSTIPATION Metformin HCl 500 MG TABLET 1 TAB PO BID DIABETES (Reported) Rosuvastatin Calcium (Crestor) 10 MG TABLET 1 TAB PO DAILY CHOLESTEROL ( Reported) Sennosides (Senna) 8.6 MG TABLET 2 TAB PO ONCE PRN CONSTIPATION Simethicone (Gas Relief 80) 80 MG TAB.CHEW 1 TAB PO Q4HPRN PRN gas Tamsulosin HCl (Flomax) 0.4 MG CAP.ER.24H 1 CAP PO QPM PROSTATE (Reported) Triage Note: PT TO ED C/O CONSTIPATION X 2 WEEKS. +FLATUS. TRIED OTC MEDS WITH NO RELIEF. Triage Nurses Notes Reviewed? yes Onset: Gradual Duration: week(s): (2), constant Timing: recent history Quality/Severity: distention Location: generalized abdomen Radiation: no radiation Activities at Onset: none No Modifying Factors: none Associated Symptoms: denies HPI: 71 year old male with history of chronic abdominal pain and constipation HTN, DM , HLD, quadriparesis , chronic back and neck pain s/p post decompressive laminectomy C3 through C6 in 07/2013, BPH with outflow obstruction and urinary retention (status post suprapubic catheter), Presents to ER for evaluation complaining of abdominal distention and constipation for the past 2 weeks. He denies history of similar symptoms in the past. He states he's been only been passing small amounts of hard stool. No black or bloody stools no nausea no vomiting. He denies history of abdominal surgeries in the past. No fever no chills. He is been drinking lots of water however denies taking any stool softeners or crhz-agz-xbtmisr laxatives. Past History Travel History Traveled to [place] past 21 day No Medical History Any Pertinent Medical History? see below for history Neurological: quadriparesis 07/2013: C-spine decomp laminectomy C3-C6 EENT: NONE Cardiovascular: hypertension, hyperlipidemia Respiratory: NONE Gastrointestinal: constipation, GERD, 01/15/16: hx colon TA Hepatic: NONE Renal: suprapubic catheter ENLARGED PROSTATE with outflow obst hx UTI/MRSA Musculoskeletal: ARTHRITIS SPINAL FX/SX Psychiatric: chronic pain disorder (neck/back), depression Endocrine: diabetes, vitamin D deficiency, borderline hyperCa2+ Blood Disorders: anemia (prev transfx 02/06/14) Cancer(s): NONE [facility]/Reproductive: NONE Other Medical Hx: 01/15/16: Colonoscopy to TI- 3 mm benign left colon TA, small int hemorrhoids History of MRSA: Yes History of VRE: No History of CDIFF: No Influenza Vaccine: 02/08/17 Surgical History Surgical History: spinal surgery, suprapubic catheter Psychosocial History Who do you live with 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 MOTHER, , Age 85; Cause: Diabetes. Relation not specified for: FH: diabetes mellitus Hx Contributory? No Review of Systems Review of Systems Constitutional: Reports: see HPI. Comments Review of systems: See HPI, All other systems negative. Constitutional, no chills no fever HEENT: no sore throat no congestion Cardiovascular: No chest pain Skin: no rashes, no change in skin Respiratory: No dyspnea no cough GI: No nausea no vomiting, : No dysuria No hematuria, no frequency Muscle skeletal: No joint pain, no back pain Neurologic: , no headache Heme/endocrine: No bruising Physical Exam Physical Exam General Appearance: no apparent distress, alert Gastrointestinal: soft, non-tender, distention Comments: Well-developed well-nourished person in no acute distress HEENT: Normal EENT exam; PERRL, EOMI, HEAD is atraumatic. moist mucous membranes. Neck: Supple, normal range of motion Back: Nontender, . Full range of motion Cardiovascular: Regular rate and rhythms no murmurs rub Respiratory: Chest nontender.There were no bony deformities, no asymmetry. No respiratory distress. Patient speaking in full complete sentences. Breath sounds clear to auscultation bilaterally: NO W/R/R Abdomen: Soft, nontender distended, no appreciable organomegaly. Suprapubic Snowden catheter Normal bowel sounds. No rebound/guarding, No ascites. Rectal: Nontender. No impaction No mass/hemorrhoid Extremity: full range of motion of extremities Neuro: Alert oriented x3, motor sensory normal, There were no obvious focal neurologic abnormalities. Skin: No appreciable rash on exposed skin, skin is warm and dry. Psych: Mood and affect is normal, memory and judgment is normal. Core Measures ACS in differential dx? No Sepsis Present: No Sepsis Focused Exam Completed? No Progress Differential Diagnosis: bowel obstruction, colon cancer, inflamm bowel dis, SBO, constipation, impaction Plan of Care: Orders Procedure Date/time Status Enema 09/01 1636 Active CAT scan ordered old records reviewed. Case discussed with Dr. Burns Agrees with plan 1845 patient had large bowel movement after enema feeling improved. I discussed with him plan of care. I advised close follow-up with his primary care physician tomorrow return precautions were discussed at length Diagnostic Imaging: Viewed by Me: CT Scan. Discussed w/RAD: CT Scan. Radiology Impression: PATIENT: JOSHUA HENDERSON PRESENT AGE : 71 PATIENT ACCOUNT NO: [id number] : 45 LOCATION: [facility] ORDERING PHYSICIAN: Chuy RUSH SERVICE DATE: 09/01/17063 EXAM TYPE: CAT - CT ABD & PELVIS W/O IV CONTRAS EXAMINATION: CT ABDOMEN AND PELVIS WITHOUT CONTRAST CLINICAL INFORMATION: Evaluate for obstruction. Constipation x2 weeks and abdominal distention. COMPARISON: Multiple prior examinations, most recent CT . TECHNIQUE: Multidetector volumetric imaging was performed from the superior aspect of the liver through the pubic symphysis. Sagittal and coronal reformatted images were obtained on the technologist's workstation. DLP: 423.74 mGy-cm FINDINGS: LUNG BASES: Clear. LIVER, GALLBLADDER, AND BILIARY TREE: Small calcification in the right lobe of the liver compatible with calcified granuloma , unchanged. No intrahepatic or extrahepatic biliary dilatation. The gallbladder is unremarkable with no evidence of radiopaque gallstones, gallbladder wall thickening, or obvious pericholecystic inflammatory changes. PANCREAS: Unremarkable. SPLEEN: Unremarkable. ADRENAL GLANDS: Unremarkable. KIDNEYS AND URETERS: Stable exophytic cyst upper pole. No stones. No hydronephrosis. Ureters normal. BLADDER: Bladder decompressed with a suprapubic catheter remaining in place. GASTROINTESTINAL TRACT: The small and large bowel is unremarkable. The appendix is unremarkable. ABDOMINAL WALL: Left fat-containing inguinal hernia, unchanged. LYMPH NODES: Normal. VASCULAR: Viyg-mh-goauwesh arterial calcification throughout. PELVIC VISCERA: Unremarkable. OSSEOUS STRUCTURES: Stable spondylosis of the lumbosacral spine. Old avulsion fracture of the anterior iliac spine or heterotopic ossification related to muscle/tendon injury in this area unchanged compared with multiple prior examinations dating back to at least 2016 compatible with a chronic injury. IMPRESSION: No evidence for obstruction. No change compared to prior. Multiple incidental findings as detailed above including calcified liver granuloma, cyst in the right kidney, left fat-containing inguinal hernia, calcific atherosclerotic disease, and spondylosis of lumbosacral spine. Old avulsion fracture or heterotopic ossification in the region of the anterior inferior iliac spine on the left. DICTATED BY: Angelo Bee MD DATE/TIME DICTATED:09/01/171551 HOTEL NIGHT AUDITOR:ANYI DATE/TIME TRANSCRIBED:09/01/171551 CONFIDENTIAL, DO NOT COPY WITHOUT APPROPRIATE AUTHORIZATION. <Electronically signed in Other Vendor System> SIGNED BY: Angelo Bee MD 09/01/17 1613 Initial ED EKG: none Departure Departure Time of Disposition: 184 Disposition: HOME OR SELF CARE Condition: Stable Clinical Impression Primary Impression: Constipation Referrals: Alisson Aquino APRN (PCP/Family) Additional Instructions: MAGNESIUM CITRATE DIRECTED. FOLLOW UP WITH YOUR PMD TOMORROW. RETURN WITH ANY CONCERNS Departure Forms: Customer Survey General Discharge Information Prescriptions: Current Visit Scripts Magnesium Citrate 296 ML PO ONCE #296 ML
[2017-09-01] MEDS ORDERED: DICYCLOMINE HCL10 M1 PO (15:20)
--- NOTE | 2017-09-01 16:15 | CT SCAN REPORT ---
EXAMINATION: CT ABDOMEN AND PELVIS WITHOUT CONTRAST CLINICAL INFORMATION: Evaluate for obstruction. Constipation x2 weeks and abdominal distention. COMPARISON: Multiple prior examinations, most recent CT 06/09/2017. TECHNIQUE: Multidetector volumetric imaging was performed from the superior aspect of the liver through the pubic symphysis. Sagittal and coronal reformatted images were obtained on the technologist's workstation. DLP: 423.74 mGy-cm FINDINGS: LUNG BASES: Clear. LIVER, GALLBLADDER, AND BILIARY TREE: Small calcification in the right lobe of the liver compatible with calcified granuloma, unchanged. No intrahepatic or extrahepatic biliary dilatation. The gallbladder is unremarkable with no evidence of radiopaque gallstones, gallbladder wall thickening, or obvious pericholecystic inflammatory changes. PANCREAS: Unremarkable. SPLEEN: Unremarkable. ADRENAL GLANDS: Unremarkable. KIDNEYS AND URETERS: Stable exophytic cyst upper pole. No stones. No hydronephrosis. Ureters normal. BLADDER: Bladder decompressed with a suprapubic catheter remaining in place. GASTROINTESTINAL TRACT: The small and large bowel is unremarkable. The appendix is unremarkable. ABDOMINAL WALL: Left fat-containing inguinal hernia, unchanged. LYMPH NODES: Normal. VASCULAR: Rmvt-zp-qwvhahrm arterial calcification throughout. PELVIC VISCERA: Unremarkable. OSSEOUS STRUCTURES: Stable spondylosis of the lumbosacral spine. Old avulsion fracture of the anterior iliac spine or heterotopic ossification related to muscle/tendon injury in this area unchanged compared with multiple prior examinations dating back to at least 2016 compatible with a chronic injury. IMPRESSION: No evidence for obstruction. No change compared to prior. Multiple incidental findings as detailed above including calcified liver granuloma, cyst in the right kidney, left fat-containing inguinal hernia, calcific atherosclerotic disease, and spondylosis of lumbosacral spine. Old avulsion fracture or heterotopic ossification in the region of the anterior inferior iliac spine on the left.
[2017-09-01] MEDS ORDERED: MAGNESIUM CITR296 ML PO (18:50)
[2017-09-01 18:52] VITALS: BP 122/62
== END 2017-09-01 19:02 ==
LOC: ERH 14:17
DX: K59.00 Constipation, unspecified (principal)
CPT/HCPCS: 74176

== ENCOUNTER 2017-10-03 13:56 | Emergency (ER) | payer OTHER, MEDICARE ==
[~2017-10-03] VITALS: Ht 172.7 cm; Wt 80.3 kg
[~2017-10-03 13:56] MED LIST changes: +DICYCLOMINE HCL10 M1 PO; +MAGNESIUM CITR296 ML PO
--- NOTE | 2017-10-03 14:57 | ED GI/GU/ABDOMINAL COMPLAINT ---
History of Present Illness General Chief Complaint: Abdominal Pain/Flank Pain Stated Complaint: ABD PAIN X 10 DAYS Source: patient, old records Exam Limitations: no limitations Vital Signs & Intake/Output Vital Signs & Intake/Output Vital Signs Date Time Temp Pulse Resp B/P B/P Pulse O2 O2 Flow FiO2 Mean Ox Delivery Rate 10/03 1610 76 20 139/81 96 Room Air 10/03 1527 Room Air 10/03 1402 97.9 110 16 107/73 96 Room Air Allergies Coded Allergies: NO KNOWN ALLERGIES (11/18/15) Reconcile Medications Aspirin (Ecotrin*) 81 MG TABLET.DR 1 TAB PO DAILY HEART/BLOOD (Reported) Dicyclomine HCl 10 MG CAPSULE 1 CAP PO TID PRN GI (Reported) Docusate Sodium (Colace) 100 MG CAPSULE 1 CAP PO ONCE PRN CONSTIPATION Duloxetine Hydrochloride (Cymbalta) 30 MG CAPSULE.DR 2 CAP PO DAILY MENTAL HEALTH (Reported) Ergocalciferol (Vitamin D2) (Vitamin D2) 50,000 UNIT CAPSULE 1 CAP PO QMON SUPPLEMENT (Reported) Finasteride 5 MG TABLET 1 TAB PO QPM PROSTATE (Reported) Hyoscyamine (Levsin) 0.125 MG TABLET 1 TAB PO Q4 ABDOMINAL SPASMS Ibuprofen 800 MG TABLET 1 TAB PO PRN PAIN (Reported) Lactulose 10 GM/15 ML SOLUTION 30 ML PO QAM PRN CONSTIPATION Magnesium Citrate 296 ML SOLUTION 296 ML PO ONCE CONSTIPATION Magnesium Citrate 296 ML SOLUTION 30 ML PO BID PRN constipaton Metformin HCl 500 MG TABLET 1 TAB PO BID DIABETES (Reported) Rosuvastatin Calcium (Crestor) 10 MG TABLET 1 TAB PO DAILY CHOLESTEROL ( Reported) Sennosides (Senna) 8.6 MG TABLET 2 TAB PO ONCE PRN CONSTIPATION Simethicone (Gas Relief 80) 80 MG TAB.CHEW 1 TAB PO Q4HPRN PRN gas Tamsulosin HCl (Flomax) 0.4 MG CAP.ER.24H 1 CAP PO QPM PROSTATE (Reported) Triage Note: PT TO ER C/C CONSTIPATION X 10 DAYS. USED MAG CITRATE, MIRALAX, AND WALKING WITHOUT RELIEF. PAIN 02/17. PT HAS INDWELLING BARNEY, DENIES CONCERNS Triage Nurses Notes Reviewed? yes Onset: Abrupt Duration: day(s): (), constant Timing: recent history Quality/Severity: cramping Severity Numbers: 4 Location: generalized abdomen Radiation: no radiation Activities at Onset: none Prior Abdominal Problems: similar symptoms No Modifying Factors: none Associated Symptoms: denies HPI: 71 year old male with history of chronic abdominal pain and constipation HTN, DM , HLD, quadriparesis , chronic back and neck pain s/p post decompressive laminectomy C3 through C6 in 07/2013, BPH with outflow obstruction and urinary retention (status post suprapubic catheter), Presents to ER for evaluation complaining of abdominal distention and constipation for the past 10 days. He denies pain.. He has history of similar symptoms in the past. He states he's been only been passing small amounts of hard stool. No black or bloody stools no nausea no vomiting. He denies history of abdominal surgeries in the past. No fever no chills. He is been drinking lots of water however denies taking any stool softeners or qxyz-zyy-gnnsypp laxatives. (Chuy Randolph) Past History Travel History Traveled to [place] past 21 day No Medical History Any Pertinent Medical History? see below for history Neurological: quadriparesis 07/2013: C-spine decomp laminectomy C3-C6 EENT: NONE Cardiovascular: hypertension, hyperlipidemia Respiratory: NONE Gastrointestinal: constipation, GERD, 01/15/16: hx colon TA Hepatic: NONE Renal: suprapubic catheter ENLARGED PROSTATE with outflow obst hx UTI/MRSA Musculoskeletal: ARTHRITIS SPINAL FX/SX Psychiatric: chronic pain disorder (neck/back), depression Endocrine: diabetes, vitamin D deficiency, borderline hyperCa2+ Blood Disorders: anemia (prev transfx 02/06/14) Cancer(s): NONE [employer]/Reproductive: NONE Other Medical Hx: 01/15/16: Colonoscopy to TI- 3 mm benign left colon TA, small int hemorrhoids History of MRSA: Yes History of VRE: No History of CDIFF: No Surgical History Surgical History: spinal surgery, suprapubic catheter Psychosocial History Who do you live with 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 MOTHER, , Age 85; Cause: Diabetes. Relation not specified for: FH: diabetes mellitus Hx Contributory? No (Chuy Randolph) Review of Systems Review of Systems Constitutional: Reports: see HPI. Comments Review of systems: See HPI, All other systems negative. Constitutional, no chills no fever, no malaise HEENT: no sore throat no congestion, Cardiovascular: No chest pain Skin: no rashes, no change in skin Respiratory: No dyspnea no cough no sputum GI: No nausea no vomiting, no diarrhea : No dysuria No hematuria, no frequency Muscle skeletal: No joint pain, no back pain, no neck pain, Neurologic: , no headache. Heme/endocrine: No bruising Immunology: No lymphadenopathy (Chuy Randolph) Physical Exam Physical Exam General Appearance: well developed/nourished, alert, awake Gastrointestinal: soft Comments: Well-developed well-nourished person in no acute distress HEENT: Normal EENT exam; PERRL, EOMI, no nystagmus. HEAD is atraumatic. moist mucous membranes. Neck: Supple,normal range of motion Back: Full range of motion Cardiovascular: Regular rate and rhythms no murmurs rub Respiratory: No respiratory distress. Patient speaking in full complete sentences. Breath sounds clear to auscultation bilaterally: NO W/R/R Abdomen: Soft, nontender nondistended, no appreciable organomegaly. Normal bowel sounds. No rebound/guarding, No appreciable enlargement of the abdominal aorta, No ascites. Extremity: No edema, atraumatic Neuro: Alert oriented x3, motor sensory normal. There were no obvious focal neurologic abnormalities. Skin: No appreciable rash on exposed skin, skin is warm and dry. Psych: Mood and affect is normal, memory and judgment is normal. Core Measures ACS in differential dx? No Sepsis Present: No Sepsis Focused Exam Completed? No (Chuy Randolph) Progress Differential Diagnosis: bowel obstruction, colon cancer, perforated viscous, SBO , impaction, constipation Plan of Care: Orders Procedure Date/time Status Enema 10/03 1511 Active Laboratory Tests 10/03/17 1413: Troponin I Cancelled, CBC w Diff Cancelled, WBC Cancelled, RBC Cancelled, Hgb Cancelled, Hct Cancelled, MCV Cancelled, MCH Cancelled, MCHC Cancelled, RDW Cancelled, Plt Count Cancelled, MPV Cancelled, Urine Color Cancelled, Urine Clarity Cancelled, Urine pH Cancelled, Ur Specific Camilla Cancelled, Urine Protein Cancelled, Urine Ketones Cancelled, Urine Nitrite Cancelled, Urine Bilirubin Cancelled, Urine Urobilinogen Cancelled, Ur Leukocyte Esterase Cancelled, Ur Microscopic Cancelled, Urine Hemoglobin Cancelled, Urine Glucose Cancelled Mr. ramsay had a large bowel movement after soap suds enema he reports to feeling significantly improved. Dr. Alegria in to evaluate patient agrees with plan given he had an extensive workup his last visit for the same including CAT scan and labs patient is reporting to feeling improved I do not believe he requires any other imaging or blood work today which he feels comfortable with going home with magnesium citrate. I answered all his questions return precautions were discussed at least he'll follow-up with his primary care physician on Thursday Initial ED EKG: none (Chuy Randolph) Departure Departure Time of Disposition: 1610 Disposition: HOME OR SELF CARE Condition: Stable Clinical Impression Primary Impression: Constipation Referrals: Alisson Aquino APRN (PCP/Family) Additional Instructions: magnesium citrate as directed. drink plenty of fluids. follow up with your pmd, return with anyconcerns Departure Forms: Customer Survey General Discharge Information Prescriptions: Current Visit Scripts Magnesium Citrate 30 ML PO BID PRN constipaton #600 ML (Chuy Randolph) PA/SENIOR TECHNICAL SUPPORT ANALYST Co-Sign Statement Statement: ED Attending supervision documentation- [x] I saw and evaluated the patient. I have also reviewed all the pertinent lab results and diagnostic results. I agree with the findings and the plan of care as documented in the PA's/SENIOR TECHNICAL SUPPORT ANALYST's documentation. [] I have reviewed the ED Record and agree with the PA's/SENIOR TECHNICAL SUPPORT ANALYST's documentation. [] Additions or exceptions (if any) to the PAs/SENIOR TECHNICAL SUPPORT ANALYST's note and plan are summarized below: [] (Gilberto Alegria DO)
[2017-10-03 16:10] VITALS: BP 139/81
[2017-10-03] MEDS ORDERED: MAGNESIUM CITR296 ML PO (16:12)
[2017-10-06] MEDS ORDERED: CIPRO500 M1 PO (22:11)
[2017-10-06] MEDS ORDERED: MOBIC15 M1 PO (22:11)
== END 2017-10-03 16:44 ==
LOC: ERH 13:56
DX: K59.00 Constipation, unspecified (principal); R10.84 Generalized abdominal pain